=== PATIENT | female | born 1965 | race Caucasian/White ===

== ENCOUNTER 2017-08-10 08:46 | Observation (INO) | payer OTHER ==
[~2017-08-10] VITALS: Ht 157.5 cm; Wt 82.2 kg
[~2017-08-10 08:46] MED LIST: ADVIL,NUPRIN,M200 MG PO; ALLERGY10 M1 PO; ATORVASTATIN CA20 MG PO; Aspirin Chewable PO; Atarax,Vistaril PO; Benadryl PO; CRESTOR10 MG PO; DAILY VALUE1 EACH PO; DULERA 200 MCG/13 GM IH; Dulera 200 mcg/5 mcg IH; FLONASE16 G1 BOTH NARES; Flovent Diskus 50 mc IH; Geodon PO; HYDROXYZINE HCL50 MG PO; KLOR-CON 1010 ME1 PO; LEVAQUIN750 MG PO; LISINOPRIL20 MG PO; METHADONE10 MG PO; Mag-Ox PO; Neurontin PO; OMEPRAZOLE40 M1 PO; OXYCODONE HCL20 M1 PO; PERCOCET 10/1 TABLET PO; PROAIR HFA8.5 GM IH; Phenergan PO; Protonix PO; TRILIPIX135 MG PO; VENTOLIN HFA18 GM IH; VITAMIN D5000 INTUN PO; ZIPRASIDONE HCL80 MG PO; ZYRTEC10 M3 PO; Zestril,Prinivil PO; Zithromax PO
[2017-08-10 09:48] LABS: EOSINOPHIL (%) 0.1 % (0-5); HEMATOCRIT 43.9 % (36.0-46.0); IMMATURE GRANULOCYTE (%) 0.3 % (0.0-0.7); INSTRUMENT ABS NEUTROPHIL CT 5.9 K/uL; LYMPHOCYTE COUNT 3.3 K/uL (1.0-2.8); MCH 32.2 PG (29.0-34.0); MCHC 35.1 G/DL (30.0-36.0); MCV 91.8 FL (83-99); MEAN PLAT.VOLUME 8.7 uM^3 (9.5-12.4); MONOCYTE (%) 6.1 % (3-12); MONOCYTE COUNT 0.6 K/uL (0-0.8); NEUTROPHIL COUNT 5.9 K/uL (1.8-6.4); PLATELET COUNT 425 K/uL (156-360); RBC DIS.WIDTH-CV 14.4 % (11.8-14.6); RBC DIS.WIDTH-SD 48.1 % (39-53); RED BLOOD COUNT 4.78 M/uL (3.80-5.20); WHITE BLOOD COUNT 9.9 K/uL (4.1-10.2)
[2017-08-10 09:58] LABS: CHLORIDE 96 mEq/L (99-109); POTASSIUM 2.6 mEq/L (3.7-5.4); SODIUM 141 mEq/L (136-147)
[2017-08-10 10:00] LABS: GLUCOSE 113 mg/dL (70-99)
[2017-08-10 10:01] LABS: ANION GAP 17 MEQ/L (2-14)
[2017-08-10 10:02] LABS: TOTAL BILIRUBIN 0.5 mg/dL (0.0-1.0)
[2017-08-10 10:04] LABS: ALKALINE PHOSPHATASE 102 IU/L (3-129); GFR ESTIMATE (CALCULATED) > 59 mL/min/
[2017-08-10 10:05] LABS: UREA NITROGEN (BUN) 6 mg/dL (9-23)
[2017-08-10 10:07] LABS: LIPASE 13 U/L (1.0-51.0)
[2017-08-10 12:20] LABS: ADD MIUA? YES; BILIRUBIN NEGATIVE; BLOOD SMALL; COLOR YELLOW ((YELLOW)); GLUCOSE (STRIP) NEGATIVE; KETONES NEGATIVE; LEUKOCYTES NEGATIVE; NITRITE NEGATIVE; PROTEIN (STRIP) NEGATIVE
[2017-08-10 12:28] LABS: BACTERIA RARE /HPF; EPITHELIAL CELLS RARE /HPF; MUCUS NONE SEEN /LPF; RED BLOOD CELLS 0-5 /HPF (0-5); UCUL ADDED? NO; WHITE BLOOD CELLS 0-5 /HPF (0-5)
[2017-08-10] MEDS ORDERED: TESSALON PERLE100 MG PO (13:46)
[2017-08-10] MEDS ORDERED: LOSARTAN POTASS50 MG PO (13:48)
[2017-08-10] MEDS ORDERED: NORVASC5 MG PO (13:48)
[2017-08-10] MEDS ORDERED: PRISTIQ50 MG PO (13:48)
[2017-08-10] MEDS ORDERED: NEURONTIN300 MG PO (13:50)
[2017-08-10 14:40] LABS: TROP-I INTERPRETATION NEGATIVE; TROPONIN-I < 0.01 ng/mL (0.0-0.30)
[2017-08-10 15:57] VITALS: BP 110/75
[2017-08-10 20:11] LABS: ANION GAP 9 MEQ/L (2-14); CHLORIDE 103 MEQ/L (99-109); GFR ESTIMATE (CALCULATED) > 59 mL/min/; GLUCOSE 100 mg/dL (70-99); MAGNESIUM 1.7 mg/dl (1.3-2.7); POTASSIUM 2.9 MEQ/L (3.7-5.4); SAMPLE HEMOLYSIS CHECK 0; SAMPLE ICTERIC CHECK 0; SAMPLE LIPEMIA CHECK 0; SODIUM 142 MEQ/L (136-147); UREA NITROGEN (BUN) 8 mg/dL (9-23)
[2017-08-10 20:14] LABS: TROP-I INTERPRETATION NEGATIVE; TROPONIN-I 0.01 ng/mL (0.0-0.30)
[2017-08-11 00:07] VITALS: BP 101/60
[2017-08-11 02:23] LABS: TROP-I INTERPRETATION NEGATIVE; TROPONIN-I < 0.01 ng/mL (0.0-0.30)
[2017-08-11 04:34] VITALS: BP 99/64
[2017-08-11 05:47] LABS: ANION GAP 6 MEQ/L (2-14); CHLORIDE 103 MEQ/L (99-109); GFR ESTIMATE (CALCULATED) > 59 mL/min/; GLUCOSE 93 mg/dL (70-99); MAGNESIUM 1.7 mg/dl (1.3-2.7); POTASSIUM 3.4 MEQ/L (3.7-5.4); SAMPLE HEMOLYSIS CHECK 0; SAMPLE ICTERIC CHECK 0; SAMPLE LIPEMIA CHECK 0; SODIUM 141 MEQ/L (136-147); UREA NITROGEN (BUN) 6 mg/dL (9-23)
[2017-08-11 06:43] LABS: ALKALINE PHOSPHATASE 69 IU/L (3-129); TOTAL BILIRUBIN 0.3 MG/DL (0.0-1.0)
[2017-08-11 08:16] VITALS: BP 99/55
[2017-08-11 12:27] VITALS: BP 92/58
== END 2017-08-11 16:50 | disposition home or self-care (01) ==
LOC: EME 08:46 → EDOF 13:30 → 5WEST 13:30 → EDOF 13:30 → ENRESERV 13:31 → 5WEST 15:54
PROVIDERS: Emergency Medicine; Hospitalist; Internal Medicine
DX: E87.6 Hypokalemia (principal); R11.2 Nausea with vomiting, unspecified; G47.33 Obstructive sleep apnea (adult) (pediatric); G35 Multiple sclerosis; J44.9 Chronic obstructive pulmonary disease, unspecified; F17.210 Nicotine dependence, cigarettes, uncomplicated; H46.9 Unspecified optic neuritis; E66.9 Obesity, unspecified; Z68.33 Body mass index [BMI] 33.0-33.9, adult; E78.5 Hyperlipidemia, unspecified; I10 Essential (primary) hypertension; G89.29 Other chronic pain; M54.9 Dorsalgia, unspecified; Z90.49 Acquired absence of other specified parts of digestive tract; Z90.710 Acquired absence of both cervix and uterus; Z88.0 Allergy status to penicillin; Z88.2 Allergy status to sulfonamides; Z91.041 Radiographic dye allergy status; Z88.5 Allergy status to narcotic agent; Z88.1 Allergy status to other antibiotic agents
CPT/HCPCS: 74176; 80048; 80048 91; 80053; 80076; 81003; 83605; 83690; 83735; 84484; 85025; 85379; 93005; 94640; 94640 76; 94799; 99202; 99281; 99285; G0378; J1650; J2405; J3480; J7030

== ENCOUNTER 2018-04-18 11:32 | Emergency (ER) | payer OTHER ==
[~2018-04-18] VITALS: Ht 157.5 cm; Wt 85.0 kg
[~2018-04-18 11:32] MED LIST changes: +LOSARTAN POTASS50 MG PO; +NEURONTIN300 MG PO; +NORVASC5 MG PO; +PRISTIQ50 MG PO; +TESSALON PERLE100 MG PO
[2018-04-18 12:20] LABS: HEMATOCRIT 40.4 % (36.0-46.0); HEMOGLOBIN 13.7 G/DL (11.9-15.5); MCH 31.2 PG (29.0-34.0); MCHC 33.9 G/DL (30.0-36.0); PLATELET COUNT 280 K/uL (156-360); RBC DIS.WIDTH-CV 14.2 % (11.8-14.6); RBC DIS.WIDTH-SD 48.3 % (39-53); RED BLOOD COUNT 4.39 M/uL (3.80-5.20); WHITE BLOOD COUNT 12.4 K/uL (4.1-10.2)
[2018-04-18 12:28] LABS: CHLORIDE 107 mEq/L (99-109); POTASSIUM 3.8 mEq/L (3.7-5.4); SODIUM 142 mEq/L (136-147)
[2018-04-18 12:30] LABS: GLUCOSE 99 mg/dL (70-99)
[2018-04-18 12:34] LABS: CREATININE 0.7 mg/dL (0.6-1.3); GFR ESTIMATE (CALCULATED) > 59 mL/min/
[2018-04-18 12:35] LABS: UREA NITROGEN (BUN) 9 mg/dL (9-23)
[2018-04-18 13:10] LABS: TROP-I INTERPRETATION NEGATIVE; TROPONIN-I 0.02 ng/mL (0.0-0.30)
[2018-04-18 14:54] LABS: QUANTITATIVE HCG < 4.0 MIU/ML
[2018-04-18 18:14] LABS: TROP-I INTERPRETATION NEGATIVE; TROPONIN-I < 0.01 ng/mL (0.0-0.30)
[2018-04-18] MEDS ORDERED: LEVAQUIN750 MG PO (18:38)
[2018-04-18] MEDS ORDERED: VENTOLIN HFA18 GM IH (19:11)
[2018-04-18 19:32] VITALS: BP 132/77
== END 2018-04-18 19:32 | disposition home or self-care (01) ==
LOC: EME 11:32
PROVIDERS: Physician Assistant Medical
DX: J44.0 Chronic obstructive pulmonary disease with (acute) lower respiratory infection (principal); J18.9 Pneumonia, unspecified organism; F17.210 Nicotine dependence, cigarettes, uncomplicated; I10 Essential (primary) hypertension; K21.9 Gastro-esophageal reflux disease without esophagitis; M79.7 Fibromyalgia; G35 Multiple sclerosis; G43.909 Migraine, unspecified, not intractable, without status migrainosus; G47.30 Sleep apnea, unspecified; F41.9 Anxiety disorder, unspecified; F32.9 Major depressive disorder, single episode, unspecified; F31.9 Bipolar disorder, unspecified; Z90.49 Acquired absence of other specified parts of digestive tract; Z88.5 Allergy status to narcotic agent; Z88.2 Allergy status to sulfonamides; Z88.0 Allergy status to penicillin; Z88.8 Allergy status to other drugs, medicaments and biological substances; Z91.041 Radiographic dye allergy status
CPT/HCPCS: 71046; 78582; 80048; 83605; 84484; 84702; 85027; 85379; 87040; 93005; 94640; 99202; 99281; 99285; A9540; A9567; J1956; J7030